=== PATIENT | female | born 2000 | race Two or more races ===

== ENCOUNTER 2023-09-19 19:55 | Emergency (ER) | payer OTHER ==
[~2023-09-19] VITALS: Ht 152.4 cm; Wt 79.4 kg
[2023-09-19] MEDS ORDERED: KETOROLAC TROMETHAMINE 30 MG VIAL IM STA (21:19)
== END 2023-09-20 00:32 | disposition home or self-care (01) ==
LOC: ER 19:57
DX: M25.572 Pain in left ankle and joints of left foot (principal); V03.99XA Pedestrian with other conveyance injured in collision with car, pick-up truck or van, unspecified whether traffic or nontraffic accident, initial encounter; Y93.89 Activity, other specified; Y92.413 State road as the place of occurrence of the external cause